=== PATIENT | male | born 1990 | race Caucasian/White ===

== ENCOUNTER 2017-09-20 08:53 | Emergency (ER) | payer OTHER ==
[2017-09-20] MEDS ORDERED: Ketamine 50 MG/ML VIAL ONE (09:34)
[2017-09-20] MEDS ORDERED: Lidocaine 1% 20 ML MDV ONE (09:48)
[2017-09-20] MEDS ORDERED: Acetaminophen/Codeine 30-300mg Tablet ONE (10:10)
--- NOTE | 2017-09-20 14:51 | RAD ---
LEFT WRIST 3 VIEWS: DATE: 09/20/17. FINDINGS: A fracture of the distal radius is present with significant posterior displacement of the distal frag ment. While the ulnar styloid is largely intact, there is a alexsander of bone at its tip which might be a tiny avulsion. The carpal bones appear normal as do the visible portions of the metacarpals. IMPRESSION: Displaced fracture of the distal radius. Possible tiny avulsion of the ulnar study. POS: HOME
--- NOTE | 2017-09-20 14:54 | RAD ---
LEFT WRIST 2 VIEWS: DATE: 09/20/17. FINDINGS: A splint has been applied. The distal radial fracture has been reduced into better alignment. It is seen in this set of images, however, but not only is there a transverse component to the fracture, b ut also a longitudinal component that extends into the radiocarpal joint. Orthopedic referral is bernardino dunham. IMPRESSION: In splint. Successful reduction, but the fracture also extends into the wrist joint. Orthopedic ref erral needed. POS: HOME
== END 2017-09-20 10:20 | disposition home or self-care (01) ==
LOC: BURERS 08:53
DX: S52.502A Unspecified fracture of the lower end of left radius, initial encounter for closed fracture (principal); F17.210 Nicotine dependence, cigarettes, uncomplicated; W01.0XXA Fall on same level from slipping, tripping and stumbling without subsequent striking against object, initial encounter
CPT/HCPCS: 25605; 99152; 99153; J2001